=== PATIENT | female | born 1995 | race Caucasian/White ===

== ENCOUNTER 2018-03-07 17:14 | Emergency (ER) | payer OTHER ==
--- NOTE | 2018-03-07 17:37 | PDOC ---
Rapid Medical Evaluation Chief Complaint: Injury Time Seen by Provider: 03/07/18 17:35 Medical Evaluation: 03/07/18 17:35 I have performed a brief in-person evaluation of this patient. The patient presents with a CC of: left ankle pain HPI: Pt is a 22 YO female who is accompanied by her mother who states that she injured her left ankle in gym today. FACES pain is 0/10 Pertinent PE: Skin: Clear Lungs: Clear Heart: RRR MS. left ankle: pt has pain and edema to the lateral aspect. Neuro: Alert Psych: Age appropriate. I have ordered the following: left ankle xray The patient will proceed to [facility] for further evaluation. Discharge Disposition - Diagnosis Ankle sprain Qualifiers: Encounter type: initial encounter Laterality: left - Referrals - Patient Instructions - Post Discharge Activity
[2018-03-07 17:39] VITALS: BP 126/60; PULSE 73; TEMP 98.8; BMI 31.1
--- NOTE | 2018-03-07 18:10 | PDOC ---
History of Present Illness - General Chief Complaint: Injury Stated Complaint: FALL/ANKLE INJURY Time Seen by Provider: 03/07/18 17:35 - History of Present Illness Initial Comments: 03/07/18 18:07 22-year-old female with MR presents for evaluation of left ankle pain. She states she was exercising and gym class and injured her left ankle. Past History - Past Medical History Allergies/Adverse Reactions: Allergies Allergy/AdvReac Type Severity Reaction Status Date / Time No Known Allergies Allergy Verified 03/07/18 17:36 Home Medications: Ambulatory Orders NK [No Known Home Medication] 03/07/18 COPD: No Other medical history: MOTHER DENIES. - Suicide/Smoking/Psychosocial Hx Smoking History: Never smoked Review of Systems - Review of Systems Musculoskeletal: Yes: Joint Pain *Physical Exam - Vital Signs Last Vital Signs Temp Pulse Resp BP Pulse Ox 98.8 F 73 19 126/60 98 03/07/18 17:36 03/07/18 17:36 03/07/18 17:36 03/07/18 17:36 03/07/18 17:36 - Physical Exam Comments: 03/07/18 18:08 Left ankle skin color and temperature are normal there is swelling about the lateral aspect of the left ankle. Range of motion is decreased there is no tenderness about the knee proximal fibula or along its distal course. No tenderness about the medial lateral malleolus base of the fifth metatarsal or navicular. Moderate amount of tenderness about the ATFL. She is unable to tolerate stability testing she has no gross sensorimotor deficits. She's neurovascularly intact. Moderate Sedation - Procedure Monitoring Vital Signs: Procedure Monitoring Vital Signs Temperature 98.8 F 03/07/18 17:36 Pulse Rate 73 03/07/18 17:36 Respiratory Rate 19 03/07/18 17:36 Blood Pressure 126/60 03/07/18 17:36 O2 Sat by Pulse Oximetry (%) 98 03/07/18 17:36 Medical Decision Making - Medical Decision Making 03/07/18 18:10 X-rays today the foot and ankle show no evidence of fracture trimer destructive process *DC/Admit/Observation/Transfer Diagnosis at time of Disposition: Ankle sprain Qualifiers: Encounter type: initial encounter Laterality: left - Discharge Dispostion Disposition: HOME Condition at time of disposition: Stable Decision to Admit order: No - Referrals Referrals: Roderick Domingo MD [Staff Physician] - - Patient Instructions Printed Discharge Instructions: Ankle Sprain, DI for Ankle Sprain Additional Instructions: Return to the emergency room should symptoms worsen or go unresolved. He may weight-bear as tolerated with use of the Aircast and crutches. Tylenol and Motrin as directed for pain please follow-up with orthopedic surgery in 2-3 days for further evaluation and treatment options. No gym or sports until cleared by orthopedics - Post Discharge Activity Forms/Work/School Notes: Back to School
== END 2018-03-07 18:35 | disposition home or self-care (01) ==
LOC: JERFT 17:14
DX: S93.402A Sprain of unspecified ligament of left ankle, initial encounter (principal); X58.XXXA Exposure to other specified factors, initial encounter; Y93.A9 Activity, other involving cardiorespiratory exercise; Y92.9 Unspecified place or not applicable
CPT/HCPCS: 73610-TC-LT-FY; 73630-TC-LT; 99281-25

== ENCOUNTER 2019-06-12 17:46 | Emergency (ER) | payer OTHER ==
--- NOTE | 2019-06-12 17:57 | PDOC ---
Rapid Medical Evaluation Time Seen by Provider: 06/12/19 17:55 Medical Evaluation: Allergies Allergy/AdvReac Type Severity Reaction Status Date / Time No Known Allergies Allergy Verified 03/07/18 17:36 06/12/19 17:55 HPI: Vomiting x2 days no fever PE: No gross deficits ORDERS: Nothing Discharge Disposition - Diagnosis Viral gastroenteritis - Referrals - Patient Instructions - Post Discharge Activity
[2019-06-12 18:00] VITALS: BP 102/55; PULSE 72; TEMP 98.4; BMI 32.7
--- NOTE | 2019-06-12 19:00 | PDOC ---
History of Present Illness - General Stated Complaint: RASH Time Seen by Provider: 06/12/19 17:55 History Source: Patient, Parent(s) - History of Present Illness Initial Comments: 06/12/19 19:22 Chief complaint: Facial redness Patient is a 23-year-old female with Down syndrome, able to communicate who vomited twice yesterday. Patient had no fever. Patient feels fine today but came into the ER because she has rash to the face. Patient is eating and drinking today and has no complaints. GENERAL/CONSTITUTIONAL: No fever, weakness. dizziness HEAD, EYES, EARS, NOSE AND THROAT: No change in vision. No ear pain or discharge. No sore throat. CARDIOVASCULAR: No chest pain RESPIRATORY: No shortness of breath or cough GASTROINTESTINAL: No pain, nausea, vomiting, diarrhea or constipation GENITOURINARY: No dysuria MUSCULOSKELETAL: No neck or back pain SKIN: No rash NEUROLOGIC: No headache, vertigo, loss of consciousness, or loss of sensation. GENERAL: The patient is awake, alert, and fully oriented, in no acute distress. HEAD: Skin to the face with scattered petechiae. No signs of infection, otherwise normal with no signs of trauma. EYES: Pupils equal, round and reactive to light, sclera anicteric, conjunctiva clear. Questionable small stye developing to the left lateral upper eyelid, no erythema or discharge ENT: pharynx: no erythema, no exudate, uvula midline NECK: supple CHEST: clear, nontender, rr ABD: soft, nontender BACK: no tenderness or signs of injury EXTREMITIES: Normal range of motion, no edema. NEUROLOGICAL: Normal speech, normal gait. SKIN: Warm, Dry Past History - Past Medical History Allergies/Adverse Reactions: Allergies Allergy/AdvReac Type Severity Reaction Status Date / Time No Known Allergies Allergy Verified 06/12/19 17:56 Home Medications: Ambulatory Orders NK [No Known Home Medication] 03/07/18 COPD: No - Psycho Social/Smoking Cessation Hx Smoking History: Never smoked Hx Alcohol Use: No Drug/Substance Use Hx: No *Physical Exam - Vital Signs Last Vital Signs Temp Pulse Resp BP Pulse Ox 98.4 F 72 18 102/55 L 99 06/12/19 17:57 06/12/19 17:57 06/12/19 17:57 06/12/19 17:57 06/12/19 17:57 Medical Decision Making - Medical Decision Making 06/12/19 19:23 23-year-old female with history of Down syndrome who vomited twice yesterday and now has facial petechiae. Patient appears well, eating and drinking. No fever. Mother states this is happened before but school wanted her evaluated before she could return. Exam is consistent with post vomiting petechiae. It is only on the face, and nowhere else. Discussed issues, findings, results, applicable medications and treatments and follow-up. All these were understood and all questions were answered Discharge - Discharge Information Problems reviewed: Yes Clinical Impression/Diagnosis: Petechiae Vomiting Qualifiers: Vomiting type: unspecified Vomiting Intractability: unspecified Nausea presence: unspecified Qualified Code(s): R11.10 - Vomiting, unspecified Condition: Stable Disposition: HOME - Follow up/Referral Referrals: Frankie Velazco MD [Primary Care Provider] - - Patient Discharge Instructions Additional Instructions: The rash should resolve on its own. Return to the ER if patient has fever, headache, worsening rash, bleeding, feeling sick or any other concerns Apply warm compresses to the left eye area. Return to the ER if redness/infection develops and specially is spreading around the eye Follow-up with her doctor tomorrow. - Post Discharge Activity Work/Back to School Note: Back to School
== END 2019-06-12 19:42 | disposition home or self-care (01) ==
LOC: JERFT 17:46 → JER 17:46 → JERFT 19:42
DX: R11.10 Vomiting, unspecified (principal); Q90.9 Down syndrome, unspecified; R23.3 Spontaneous ecchymoses
CPT/HCPCS: 99281-25

== ENCOUNTER 2021-07-25 15:55 | Emergency (ER) | payer OTHER ==
[2021-07-25 16:27] VITALS: BP 124/75; PULSE 84; TEMP 98.1; BMI 31.1
[2021-07-26 20:07] LABS: SARS-CoV-2 NAA Not Detected (Not Detected)
== END 2021-07-25 18:11 | disposition home or self-care (01) ==
LOC: JER 15:55
DX: J06.9 Acute upper respiratory infection, unspecified (principal)
CPT/HCPCS: 87651; 87804; 99283-25; C9803-CS; U0003; U0005